=== PATIENT | female | born 1965 | race Two or more races ===

== ENCOUNTER → 2018-04-18 | Outpatient (CLI) | payer OTHER ==
--- NOTE | 2018-04-18 13:12 | KCIC ---
EXAM: Chest, single view. HISTORY: Positive tuberculin skin test. COMPARISON: None. FINDINGS: A frontal view the chest is obtained. There is no infiltrate, pleural effusion or pneumothorax. The heart is normal in size. IMPRESSION: No acute pulmonary finding or evidence of pulmonary tuberculosis. Electronically signed by: Sonia Chaudhry MD (04/18/2018 1:07 PM) [facility]
== END | disposition home or self-care (01) ==
LOC: KCIC 09:24
PROVIDERS: ATTEND Family Medicine
DX: R76.11 Nonspecific reaction to tuberculin skin test without active tuberculosis (principal)
CPT/HCPCS: 71045